=== PATIENT | male | born 2000 | race Caucasian/White ===

== ENCOUNTER 2020-02-05 12:21 | Emergency (ER) | payer MEDICAID, SELFPAY ==
[2020-02-05 12:27] VITALS: BP 155/88; PULSE 95; RESP 16; TEMP 36.4; O2SAT 98
--- NOTE | 2020-02-05 12:45 | DI.RAD_ITS ---
EXAM: XR LUMBAR SPINE COMPLETE CLINICAL HISTORY: Pain,. TECHNIQUE: 2D digital imaging was performed. COMPARISON: No exams were available for comparison FINDINGS: BONES: No fracture or destructive lesion. Vertebral bodies are unremarkable. No facet hypertrophy jamie ntified. DISKS: Intervertebral disc spaces are maintained. ALIGNMENT: Lumbar spinal alignment is within normal limits. SOFT TISSUE: Normal. IMPRESSION: No acute abnormality. DATA REPOSITORY: RADIATION DOSE DELIVERED:
--- NOTE | 2020-02-05 12:48 | ED.GENADUL_ITS ---
Discharge Plan Disposition Patient Disposition: HOME Condition: Stable Discharge Details Clinical Impression: Lumbago Primary Care Provider: None,None ED Provider: Sondra Strong Home Meds and New Rx's Prescriptions: No Action No Known Home Meds RF: 0 Discharge Instructions Instructions: Low Back Strain (ED) Additional Instructions: Follow up with primary care provider in 3-5 days. Return to ED sooner if any worsening or concerns. Increase oral fluids. Please take Tylenol or Ibuprofen with food every 4-6 hours as needed for pain and swelling. Alternate ice and heat. Return to the ED for any worsening pain, problems urinating or if the pain moves. Discharge Data Discharge Date/Time-TO BE ENTERED AT DEPARTURE: 02/05/20 14:28 Medical Decision Making 19-year-old male presents with his mother complaining of lower lumbar tenderness and right lower lumbar paraspinous tenderness. He reports that he was arrested on Wednesday evening for underage drinking and was taken into custody. He does not remember being tased or being thrown down to the ground. He does have a small area of ecchymosis noted to his lower mid spine and some paraspinous tenderness and swelling and muscle spasm noted. He denies any urinary complaints or dysuria or problems urinating. Denies any weakness numbness or saddle anesthesia. He does endorse nausea. No vomiting abdominal pain or diarrhea. Urinalysis shows 30 urine protein, 15 urine ketones, trace intact blood, 3-5 RBCs no leukocytes no nitrites. EXAM: XR LUMBAR SPINE COMPLETE CLINICAL HISTORY: Pain,. TECHNIQUE: 2D digital imaging was performed. COMPARISON: No exams were available for comparison FINDINGS: BONES: No fracture or destructive lesion. Vertebral bodies are unremarkable. No facet hypertrophy identified. DISKS: Intervertebral disc spaces are maintained. ALIGNMENT: Lumbar spinal alignment is within normal limits. SOFT TISSUE: Normal. IMPRESSION: No acute abnormality. Patient was given Flexeril and ibuprofen in department which seemed to improve his symptoms. Discussed alternating ice and heat and home care with patient. Discussed potential option for CT abdomen pelvis due to trace blood in urine to rule out kidney stone which is unlikely due to patient seeming to be tender with palpation and mostly musculoskeletal in origin. They verbalized understanding and declined CT at this time. Instructed to follow-up with PCP, verbalized understanding HPI General Mode of arrival: ambulatory . Date/Time Provider Initiated Documentation: 02/05/20 12:24 . Limitations to Documentation: no limitations . Information obtained by: patient . HPI Narrative: 19-year-old male presents with his mother complaining of lower lumbar tenderness and right lower lumbar paraspinous tenderness. He reports that he was arrested on Wednesday evening for underage drinking and was taken into custody. He does not remember being tased or being thrown down to the ground. He does have a small area of ecchymosis noted to his lower mid spine and some paraspinous tenderness and swelling and m uscle spasm noted. He denies any urinary complaints or dysuria or problems urinating. Denies any weakness numbness or saddle anesthesia. He does endorse nausea. No vomiting abdominal pain or diarrhea. Related Data Home Medications Medication Instructions Recorded Confirmed Unknown [No Known Home Meds] 02/05/20 02/05/20 Allergies Allergy/AdvReac Type Severity Reaction Status Date / Time No Known Allergies Allergy Unverified 02/05/20 12:32 General Stated Complaint: Nk/Back Pain ANDREA: 4 Review of Systems Narrative: Constitutional: Negative for weight loss, alert and oriented, well groomed, normal body habitus, appears comfortable. HEENT: Denies trauma, headaches, blurry vision, nasal discharge, sore throat, trouble swallowing. Chest: Denies chest pain, palpitations, irregular rhythm, hypertension. Respiratory: Denies Shortness of breath, cough, hemoptysis. GI: Denies abdominal pain, nausea, vomiting, diarrhea, constipation. : Denies dysuria, hematuria, flank pain, rectal bleeding. Neuro: Denies dizziness, blurry vision, weakness, syncope, headache or facial numbness. Hematologic: Denies easy bruising, intolerance to heat or cold, hair loss. [facility], [facility] Social History Smoking/Tobacco Use Status: Current every day Tobacco Type: cigarettes Alcohol Intake: current Alcohol Intake frequency: holidays/special occasions only Drug use: Never Substance use type: marijuana Do you feel safe at home: Yes Do you feel safe in your relationship?: Yes Exam Narrative Exam Narrative: Constitutional: Alert and oriented x3. Appears stated age. Normal body habitus. Head: Normocephalic, no trauma. Eyes: Pupils PERRLA, Red reflex noted, EOM's intact. Eyelids symmetrical without lesions, discharge, or swelling. ENT: Bilateral TM's WNL, External ear normal to inspection, no mastoid TTP, swelling, or erythema, Nasal turbinates WNL, no nasal discharge. Normal dentition, Posterior pharynx WNL, no exudate. Chest: RRR, Normal S1, S2, distal pulses intact. Resp: Lungs clear to auscultation bilaterally, no wheezes, rales, or rhonchi. Musculoskeletal: Normal gait, 5/5 strength to all four extremities. Skin: No suspicious rashes or lesions. Capillary refill less than 2 sec. Neurologic: Cranial nerves II-XII intact. Alert and oriented x 3. DTR's intact. Hematologic/Lymphatic: No ecchymosis, no lymphadenopathy. Course Vital Signs Vital signs: Vital Signs Temperature 36.4 C L 02/05/20 12:27 Pulse 95 H 02/05/20 12:27 Respiratory Rate 16 02/05/20 12:27 Blood Pressure 155/88 H 02/05/20 12:27 Pulse Oximetry 98 02/05/20 12:27 Temperature 36.4 C L 02/05/20 12:27 Temperature Source Tympanic 02/05/20 12:27 Pulse 95 H 02/05/20 12:27 Respiratory Rate 16 02/05/20 12:27 Respiratory Effort Non-Labored 02/05/20 12:31 Blood Pressure 155/88 H 02/05/20 12:27 Blood Pressure Position Sitting 02/05/20 12:27 Pulse Oximetry 98 02/05/20 12:27 Oxygen Delivery Method Room Air 02/05/20 12:27 Oxygen Flow Rate 0 02/05/20 12:27 Pain Level 5 02/05/20 12:27
[2020-02-05 13:59] LABS: Bilirubin Negative (Negative); Blood Trace-intact (Negative); Clarity Clear (Clear); Glucose Negative (Negative); Ketones 15 mg/dL (Negative); Leukocyte Esterase Negative (Negative); Nitrite Negative (Negative); Specific Gravity 1.025 (1.005-1.025)
[2020-02-05 14:12] LABS: Bacteria Rare HPF (Negative); Casts Negative LPF (Negative); Crystals Negative HPF (Negative); Epithelial Cells Few HPF (Negative); Mucus Trace (Negative); Other Cells Few Yeast (Negative); WBC 0-2 HPF (0-5)
[2020-02-05 14:13] LABS: C & S Indicated? No
[2020-02-05] MEDS: Ibuprofen 600 MG TAB PO (14:15)
[2020-02-05] MEDS: Cyclobenzaprine 10 MG TAB PO (14:15)
[2020-02-05 14:28] VITALS: BP 143/81; PULSE 59; RESP 15; O2SAT 98
== END 2020-02-05 14:28 | disposition home or self-care (01) ==
PROVIDERS: Emergency Provider Registered Nurse Emergency
DX: M54.5 Low back pain (principal)
CPT/HCPCS: 99283; 72110; 81003; 81015

== ENCOUNTER 2021-11-11 16:06 | Emergency (ER) | payer MEDICAID, SELFPAY ==
[2021-11-11 16:17] VITALS: BP 152/78; PULSE 77; RESP 18; TEMP 36.9; O2SAT 97
--- NOTE | 2021-11-11 16:30 | DI.RAD_ITS ---
Exam(s) XR WRIST RT COMPLETE EXAM: XR WRIST RT COMPLETE CLINICAL HISTORY: punched a door, r/o fx. TECHNIQUE: 2D digital imaging was performed. Three views. COMPARISON: No exams were available for comparison FINDINGS: BONES: No acute fracture is present. No bony destructive lesion is seen. JOINTS: The carpal bones are normally aligned. SOFT TISSUE: Dorsal soft tissue swelling. IMPRESSION: No acute bony abnormality. DATA REPOSITORY: RADIATION DOSE DELIVERED:
--- NOTE | 2021-11-11 16:30 | DI.RAD_ITS ---
Exam(s) XR HAND RT COMPLETE EXAM: XR HAND RT COMPLETE CLINICAL HISTORY: punched a door, r/o fx. TECHNIQUE: 2D digital imaging was performed. Three views. COMPARISON: No exams were available for comparison FINDINGS: BONES: There is an acute fracture of the head of the 5th metacarpal with some ventral angulation and mild ventral displacement. No additional fractures are seen.. No bony destructive lesion is seen. JOINTS: No dislocation present. SOFT TISSUE: Dorsal soft tissue swelling over the metacarpal region. IMPRESSION: Fifth metacarpal fracture. DATA REPOSITORY: RADIATION DOSE DELIVERED:
--- NOTE | 2021-11-11 16:58 | PDOC.ERCMPRO ---
- If Service Date Differs Date of service: 11/11/21 Time of Service: 16:59 Care Management Progress Note SBIRT screen negative for anxiety, depression, substance use except cannabis which pt uses daily foir ADHD symptoms because he feels it works better than other medications. Pt is currently cutting down on nicotine and has switched from smoking to vaping.
--- NOTE | 2021-11-11 17:32 | ED.GENADUL_ITS ---
Discharge Plan Disposition Patient Disposition: HOME Condition: Stable Discharge Details Clinical Impression: Boxer's fracture Primary Care Provider: None,None ED Provider: Juana Casey Home Meds and New Rx's Prescriptions: No Action No Known Home Meds Discharge Instructions Instructions: Boxer Fracture (ED) Additional Instructions: Your x-ray confirms today that you have a boxer's fracture or fracture of the fifth metacarpal bone in your right hand. Rest, ice, and elevate the affected area as much as possible. Alternate tylenol and motrin as needed and directed for pain. You have been placed in a splint to keep in place as much as possible until follow-up with orthopedics. Follow-up with orthopedics in the next 1 to 2 weeks. Return immediately to the emergency department if you develop any worsening or new concerning symptoms. Referrals: Dontae Feliz MD [ [facility] STAFF PHYSICIAN] - Discharge Data Discharge Date/Time-TO BE ENTERED AT DEPARTURE: 11/11/21 18:38 Discharge Physician: Juana Casey Medical Decision Making 21yo M presents with right hand pain after punched a garage door 2 weeks ago. He has not sought medical treatment or evaluation since his injury. He has tenderness with edema and ecchymosis of the dorsal hand overlying the fourth and fifth metacarpals. There is no obvious deformity. He is neurov ascularly intact. Patient referred for imaging which confirms boxer's fracture. Case discussed with Dr. Feliz and as injury is 2 weeks out, appropriate to place a premade boxer splint. Patient placed on orthopedic follow-up list. Usual and customary return precautions given prior to discharge. Medical Records Medical records reviewed: Yes I reviewed the patient's medical records. HPI General Mode of arrival: ambulatory . Date/Time Provider Initiated Documentation: 11/11/21 16:15 . Limitations to Documentation: no limitations . Information obtained by: patient . HPI Narrative: Patient is a 21-year-old [id number] male who presents with right hand pain after punched a garage door 2 weeks ago. Patient states he suspected a fracture in his hand and has been wearing his girlfriend's father's splint but s tates it is too big for him. He has been taking ibuprofen for pain. Patient states he is here today for an x-ray to make sure that his bone is healing. Related Data Home Medications Medication Instructions Recorded Confirmed Unknown [No Known Home Meds] 02/05/20 02/05/20 Allergies Allergy/AdvReac Type Severity Reaction Status Date / Time No Known Allergies Allergy Unverified 02/05/20 12:32 General Stated Complaint: Orthopedic ANDREA: 4 Review of Systems All systems reviewed & are unremarkable except as noted in HPI and below Constitutional Constitutional: Reports as per HPI, Denies chills and Denies fever(s) Eyes Eyes: Denies blurry vision ENT Ears, Nose, Mouth, and Throat: Denies dizziness, Denies sore throat and Denies throat swelling Cardiovascular Cardiovascular: Denies chest pain and Denies dyspnea Respiratory Respiratory: Denies cough and Denies dyspnea Gastrointestinal Gastrointestinal: Denies abdominal pain, Denies diarrhea and Denies vomiting Genitourinary Genitourinary: Denies hematuria and Denies dysuria Musculoskeletal Musculoskeletal: Denies back pain and Denies numbness Comments: R hand injury Integumentary/Breasts Skin/Breast: Denies lesions and Denies rash Neurologic Neurologic: Denies dizziness, Denies localized weakness and Denies numbness Allergic/Immunologic Allergic/Immunologic: Denies throat swelling PFSH All Active Problems (Updated 11/11/21 @ 18:23 by Juana Casey DO) Boxer's fracture (Acute) Social History Smoking/Tobacco Use Status: Current every day Tobacco Type: cigarettes Smoking risk assessment performed?: Yes Alcohol Intake: current Alcohol Intake frequency: holidays/special occasions only Drug use: Never Substance use type: does not use Do you feel safe at home: Yes Do you feel safe in your relationship?: Yes Exam Const General: cooperative, healthy appearing and no acute distress Orientation: alert, awake and oriented x3 HENMT Head: normal to inspection Mouth: oral mucosae normal Eyes General: appearance normal, both eyes and all related structures Neck Neck: normal visual inspection Resp Effort & Inspection: normal respiratory effort and able to speak in complete sentences Cardio Rate: regular rate Skin General skin exam: no rashes or lesions noted Neuro General: patient alert, patient awake and patient oriented x3 Motor: muscle tone normal throughout Extrem Hand/finger images: 1. Tenderness to palpation and mild to moderate edema and ecchymoses noted on the dorsal surface of the hand overlying the right fourth and fifth metacarpals. There are no open wounds noted. Psych Appearance: grossly normal Affect: normal affect Course Vital Signs Vital signs: Vital Signs Temperature 98.4 F 11/11/21 16:17 Pulse 77 11/11/21 16:17 Respiratory Rate 18 11/11/21 16:17 Blood Pressure 152/78 H 11/11/21 16:17 Pulse Oximetry 97 11/11/21 16:17 Temperature 98.4 F 11/11/21 16:17 Temperature Source Skin 11/11/21 16:17 Pulse 77 11/11/21 16:17 Respiratory Rate 18 11/11/21 16:17 Respiratory Effort 11/11/21 16:21 Blood Pressure 152/78 H 11/11/21 16:17 Blood Pressure Position Sitting 11/11/21 16:17 Pulse Oximetry 97 11/11/21 16:17 Oxygen Delivery Method Room Air 11/11/21 16:17 Oxygen Flow Rate 0 11/11/21 16:17 Pain Level 3 11/11/21 17:25 Comment 11/11/21 16:17
--- NOTE | 2021-11-11 18:02 | DI.VRAD_ITS ---
PROCEDURE INFORMATION: Exam: XR Right Hand Exam date and time: 11/11/2021 5:26 PM Age: 21 years old Clinical indication: Other: Punched a door, R/O FX TECHNIQUE: Imaging protocol: Radiologic exam of the Right hand. Views: 3 or more views. COMPARISON: No relevant images were readily available for comparison purposes. FINDINGS: Bones/joints: there is a mildly displaced/angulated acute appearing fracture of the 5th metacarpal head. Soft tissues: soft tissue swelling. IMPRESSION: Acute fracture 5th metacarpal head. Dictated and Authenticated by: Shaka Lawler MD. Ordering:LAILA Arias MD
--- NOTE | 2021-11-11 18:03 | DI.VRAD_ITS ---
PROCEDURE INFORMATION: Exam: XR Right Wrist Exam date and time: 11/11/2021 5:27 PM Age: 21 years old Clinical indication: Other: Punched a door, R/O FX TECHNIQUE: Imaging protocol: Radiologic exam of the Right wrist. Views: 3 or more views. COMPARISON: CR XR HAND RT COMPLETE 11/11/2021 5:26 PM FINDINGS: Bones/joints: 5th metacarpal head fracture better demonstrated on same day radiograph of the hand. Please see the associated report. No other acute fracture or dislocation. Soft tissues: Soft tissue swelling. IMPRESSION: As above. Dictated and Authenticated by: Shaka Lawler MD. Ordering:LAILA Arias MD
[2021-11-11] MEDS: Ibuprofen 600 MG TAB PO (18:38)
== END 2021-11-11 18:38 | disposition home or self-care (01) ==
PROVIDERS: Emergency Provider Physician Assistant
DX: S62.396A Other fracture of fifth metacarpal bone, right hand, initial encounter for closed fracture (principal); W22.09XA Striking against other stationary object, initial encounter
CPT/HCPCS: 29125; 99284; 73110; 73130; 99283

== ENCOUNTER 2022-10-03 11:25 | Emergency (ER) | payer MEDICAID, SELFPAY ==
[2022-10-03] VITALS (24 sets, daily range): BP systolic 89–133; BP diastolic 45–83; PULSE 53–77; RESP 12–24; TEMP 36.6–36.8; O2SAT 97–99
--- NOTE | 2022-10-03 11:26 | ED.GENADUL_ITS ---
Discharge Plan Disposition Patient Disposition: Home Discharge Details Clinical Impression: BRBPR (bright red blood per rectum), Chest pain, unspecified Primary Care Provider: Unknown,Unknown ED Provider: Jaquan Fraser Home Meds and New Rx's Prescriptions: No Action No Known Home Meds Discharge Instructions Additional Instructions: You were seen in the emergency department for your right red blood per rectum. Your blood counts were normal. Your CAT scan showed no acute process in your stomach. No signs of inflammatory bowel disease. No signs of any masses. As galindo dolan discussed, please continue the process of obtaining a primary care provider. Please follow-up with your primary care provider as you may or may not benefit from a colonoscopy. If you develop fevers any abdominal pain or develop any bleeding that does not stop from your rectum please return to the emergency department. Medical Decision Making This is a quite well-appearing normothermic and not tachycardic 21-year-old male with bright red blood per rectum and narrow caliber stools concerning for the possibility of early inflammatory bowel disease. Patient has not had any fevers or unintentional weight loss. We will obtain a CT scan to assess for signs of colitis or any skip lesions. No vomiting to suggest SBO. He has no specific ri ght lower quadrant tenderness to suggest appendicitis. No rash on chest or abdomen to suggest zoster. No history of trauma to suggest intra-abdominal bleeding. He denies black and tarry stools and is nonalcoholic so my suspicion for upper GI bleed is low. He has reassuring vital signs and my suspicion is low for acute blood loss anemia. Based on Lana Blatchford scoring system if his hemoglobin is reassuring he will be appropriate for discharge with outpatient management. He is in the process of obtaining a primary care provider so we will obtain a CT scan with IV contrast and will add oral contrast secondary to his low BMI. Concerning his chest pain he has equal breath sounds and no recent trauma so I am not concerned for pneumothorax. He is not hypotensive nor dialysis patient make my suspicion low for tamponade. He has not been vomiting to suggest increased risk for esophageal rupture. No cough no fevers to suggest pneumonia. No positional component to suggest pericarditis. I considered PE however the patient is PERC negative so I did not obtain a D- dimer. Will obtain twelve-lead ECG and single troponin based on duration of time since the patient's symptoms began and is overall low risk for ACS. 12:50 PM CBC with no anemia thrombocytopenia nor leukocytosis. 1:22 PM Reassuring negative troponin. Basic metabolic panel within normal limits with the exception of very mild hyperglycemia but normal bicarbonate and no anion gap. Not consistent with DKA. His GBS score was 0 making him low risk in the setting of GI bleed. Appropriate for discharge with outpatient follow-up based on results of CT. 2:[address] scan with no acute process. Reassuring normal chest x-ray. Will discharge patient with return indications. Will ensure patient can pass a p.o. trial. 3:15 PM Patient tolerated p.o. in the ED. He was discharged with empiric trial of expectant outpatient management. I did advise ED return if he developed rectal bleeding that did not stop, if he developed fever, or had any significant abdominal pain. Otherwise he will continue the process of setting up a primary care provider and follow-up with his primary care provider. HEART SCORE Chest pain Diagnostic Protocol: - [History/Physical/Gestalt: Slightly Suspicious (0)] - [EKG: Nonspecific repolarization (+1)] - [AGE: less than 45 (0)] - [RISK FACTORS: No known risk factors (0)] - [TROPONIN: <= normal limit (0)] - TOTAL SCORE: 1 - Risk Factors: DM, current or recent smoker, HTN, HLD, family hx of CAD, obesity - INTERPRETATION: With a total score of 3 or less, risk of major cardiac event within six weeks 1.7%, likely lower with two negative troponins. [I explained to the patient that the risk of subsequent major cardiac event within 1 month is not 0, however risk predicted to be less than 2%. Patient verbalized understanding, accepts this risk and shared and the decision for discharge with PCP follow-up for further evaluation and management. They understand to return to the ED immediately with any worsening symptoms, new symptoms or other concerns.] Chronic conditions affecting the care of the patient: N/A History obtained from an outside historian: Patient's mother External record review: No record in [facility] EMR Diagnostic interpretations performed by me: [Per my independent interpretation chest x-ray shows:] [] Per my independent interpretation EKG shows: Narrow complex sinus bradycardia at a rate of 57. Normal axis. Intervals within normal limits. No ST segment abnormalities. Biphasic T wave in aVL. No prior for comparison. No acute injury pattern. Medications: [] Social determinants of health affecting disposition: [] Management discussed with: [] Treatment/interventions considered: [] Response to therapies provided: [] HPI General Date/Time Provider Initiated Documentation: 10/03/22 11:25 . HPI Narrative: This is a previously healthy 21-year-old male up-to-date with immunizations in the emergency department with his mother in the setting of 2 complaints. Patient reports that yesterday he had bright red blood per rectum. He has been nauseous for the past several weeks and reportedly has had increasingly narrow caliber stools that he describes as shaped like a ribbon. He has not vomited. He occasionally has some sharp abdominal pains. He remotely had a hernia repaired during infancy. He takes no medications. He endorses a gurgling sound in his stomach. He denies any black tarry stools. He has not had any fevers. He has no personal history and there is no reported family history of inflammatory bowel disease. Patient and his mother specifically denies history of ulcerative colitis and Crohn's disease. Of note however mom does have a history of hypothyroidism and celiac disease. Patient vapes tobacco occasionally drinks ethanol and occasionally smokes marijuana. He also complains of intermittent left sided chest pain that has been going on for the past several months. It occurs at random and lasts approximately 1 minute. It does not radiate. It is not associated with diaphoresis. Patient has not taken any falls on his chest. No recent URI symptoms. No history of PE nor DVT. No cough. No syncope. Related Data Home Medications Medication Instructions Recorded Confirmed Unknown [No Known Home Meds] 02/05/20 10/03/22 Allergies Allergy/AdvReac Type Severity Reaction Status Date / Time No Known Allergies Allergy Unverified 02/05/20 12:32 General ANDREA: 4 PFSH All Active Problems (Updated 10/03/22 @ 11:58 by Jaquan Fraser MD) BRBPR (bright red blood per rectum) (Acute) Chest pain, unspecified (Acute) Social History Smoking/Tobacco Use Status: Current every day Tobacco Type: cigarettes Smoking risk assessment performed?: Yes Alcohol Intake: current Alcohol Intake frequency: holidays/special occasions only Drug use: Never Substance use type: does not use Do you feel safe at home: Yes Do you feel safe in your relationship?: Yes Exam Narrative Exam Narrative: General: Well-appearing in no acute distress speaking in complete sentences. Head: Normocephalic, atraumatic. Eye: Extraocular eye movements intact. No conjunctival injection. No scleral icterus. Ear, nose, mouth, throat: Grossly normal inspection. Normal voice, handling secretions normally. Neck: Trachea midline. Cardiovascular: Well-perfused distal extremities. Regular rate and rhythm. No murmurs. Respiratory: Nonlabored respiration. Clear lungs bilaterally. Gastrointestinal: Nondistended abdomen. Soft nontender abdomen. No rebound. No guarding. Rectal exam: On external inspection at approximately the 2 o'clock position patient has some redundant folds of skin. No obvious external hemorrhoids. No anal fissures. On internal exam no obvious internal hemorrhoids. Musculoskeletal: No edema. Moving all 4 extremities spontaneously. Skin: Normal for age and race, grossly normal temperature and turgor. No acute rash. Neurologic: Alert and appropriate, no apparent acute deficits. Psychiatric: Mood and manner are appropriate. Grooming and personal hygiene are appropriate.
--- NOTE | 2022-10-03 11:45 | DI.RAD_ITS ---
Exam(s) XR CHEST 2V PA LATERAL EXAM: XR CHEST 2V PA LATERAL CLINICAL HISTORY: Chest pain TECHNIQUE: 2D digital imaging was performed of the chest. Two images were obtained. PA and lateral views were obtained. COMPARISON: No exams were available for comparison FINDINGS: MEDIASTINUM: Normal. HEART: Normal. PULMONARY VASCULATURE: Normal. LUNGS: Clear. PLEURAL SPACE: No pleural effusion or pneumothorax. BONE:Within normal limits for the patient's age. OTHER FINDINGS:Normal. IMPRESSION: No acute pulmonary findings. DATA REPOSITORY: RADIATION DOSE DELIVERED:
--- NOTE | 2022-10-03 11:45 | RT.EKG_ITS ---
APPROVED REPORT Exam: Resting ECG Reason for Exam: Chest pain Patient Location: E HR:57 bpm ECG Measurements Heart Rate 57 AXIS SD 148 P 48 QRSd 90 QRS 87 QT 410 T 60 QTc 399 Conclusion Sinus bradycardia...rate< 60 Narrow complex sinus bradycardia at a rate of 57. Normal axis. Intervals within normal limits. No ST segment abnormalities. Biphasic T wave in aVL. No prior for comparison. No acute injury pattern .
--- NOTE | 2022-10-03 11:45 | DI.CT_ITS ---
Exam(s) CT ABDOMEN PELVIS W EXAM: CT ABDOMEN PELVIS W CLINICAL HISTORY: Narrow caliber stools abdominal pain generalized TECHNIQUE: Imaging Protocol: Axial computed tomography images with coronal and sagittal reformatted images were created and reviewed CONTRAST MATERIAL: Intravenous: Omnipaque 350 Contrast volume:90 mL Oral: No COMPARISON: No exams were available for comparison FINDINGS: ABDOMEN: Lung Bases: Normal where visualized. Liver: Normal density. No measurable mass. Portal, Superior Mesenteric, and Splenic Veins: Unremarkable. Gallbladder and Biliary Tract: No radiodense calculus or dilation. Pancreas: Normal density, no abnormal calcifications or inflammatory process. Spleen: Normal. Adrenals: No masses seen. Kidneys: Normal size, contour and axis. No radiodense stones or obstructive uropathy. No masses seen. Abdominal Aorta: Abdominal portion non-dilated. Bowel: No obstruction or bowel wall thickening. Appendix is unremarkable. Peritoneal Cavity: No ascites, collection or mesenteric inflammatory response. No free air. Lymph Nodes: Within normal limits. Bones: Within normal limits for the patient's age. Soft Tissues: Unremarkable. PELVIS: Bladder: Symmetric distention, no gross wall thickening. Reproductive Organs: Unremarkable as visualized. Lymph Nodes: Within normal limits. Bones: Within normal limits for the patient's age. IMPRESSION: No acute abdominal or pelvic process. RADIATION DOSE DELIVERED: 518.17mGy.cm Total DLP DATA REPOSITORY: All CT scans at this facility are submitted to the National Radiology Data Registry (NRDR) Dose Index Registry (DIR) with the [employer] ([employer]). RADIATION OPTIMIZATION: All CT scans at this facility use at least one of these dose optimization te chniques: automated exposure control; mA and/or kV adjustment per patient size (includes targeted exa ms where dose is matched to clinical indication); or iterative reconstruction.
[2022-10-03 12:27] LABS: Abs Immature Grans 0.01 10^3/uL (0.0-0.06); Absolute Basophil Count 0.03 10^3/uL (0.0-0.2); Absolute Eosinophil Count 0.08 10^3/uL (0.0-0.7); Absolute Lymphocyte Count 2.54 10^3/uL (1.2-3.4); Absolute Neutrophil Count 2.44 10^3/uL (1.2-6.7); Basophils % 0.5; Eosinophils % 1.4; HCT 45.6 % (40.0-50.0); HGB 15.5 g/dL (13.5-17.5); Immature Grans % 0.2; Lymphocytes % 44.6; MCH 28.8 pg (27.0-33.0); MCV 85 fL (80-95); MPV 9.9 fL (8.0-11.0); Monocytes % 10.5; Neutrophils % 42.8; Platelet Count 278 10^3/uL (130-400); RBC 5.38 10^6/uL (4.36-5.78); RDW 12.3 % (11.8-14.1)
[2022-10-03 12:52] LABS: Anion Gap 10.2 mmol/L (3-11); BUN 15 mg/dL (7-18); CO2 26.8 mmol/L (21.0-32.0); CREATININE 1.1 mg/dL (0.70-1.30); Calcium 9.8 mg/dL (8.5-10.1); Chloride 103 mmol/L (98-107); Estimated GFR 97.34 (mL/min/1.73m2); Glucose 108 mg/dL (74-106); Potassium 3.6 mmol/L (3.5-5.1); Sodium 140 mmol/L (136-145)
[2022-10-03 13:09] LABS: Troponin I < 50 ng/L (<or=60)
--- NOTE | 2022-10-03 13:57 | NUR.NOTE ---
Nursing Note: Pt awake, A/O X4, denies pain, denies moving bowels. Pt's results reviewed with pt and pt's mom. Pt tolerating long prep for CT Scan, awaiting Xray and scan. Pt in agreement with plan, awaiting disposition. Call light within reach, pt denies needs at this time. Pt's mom off unit with plan to return.
[2022-10-03] MEDS: Omnipaque 350 MG/ML 50 ML BTL PO (14:14)
[2022-10-03] MEDS: Breeza Beverage 473 ML BTL 950 ML PO (14:15)
[2022-10-03] MEDS: Normal Saline - Diluent 50 ML VIAL IJ (14:16)
[2022-10-03] MEDS: Omnipaque 350 MG/ML 100 ML BTL 90 ML IJ (14:16)
--- NOTE | 2022-10-03 14:36 | DI.VRAD_ITS ---
PROCEDURE INFORMATION: Exam: CT Abdomen And Pelvis With Contrast Exam date and time: 10/03/2022 2:12 PM Age: 21 years old Clinical indication: Other: Narrow caliber stools abdominal pain generalized TECHNIQUE: Imaging protocol: Computed tomography of the abdomen and pelvis with contrast. Contrast material: OMNIPAQUE 350; Contrast volume: 90 ml; Contrast route: INTRAVENOUS (IV); COMPARISON: CR XR LUMBAR SPINE COMPLETE 02/05/2020 12:58 PM FINDINGS: Liver: Normal. No mass. Gallbladder and bile ducts: Normal. No calcified stones. No ductal dilation. Pancreas: Normal. No ductal dilation. Spleen: Normal. No splenomegaly. Adrenal glands: Normal. No mass. Kidneys and ureters: There is no evidence of renal or ureteral calcifications. Stomach and bowel: Unremarkable. No obstruction. No mucosal thickening. Appendix: Normal appendix Intraperitoneal space: Unremarkable. No free air. No significant fluid collection. Vasculature: Unremarkable. No abdominal aortic aneurysm. Lymph nodes: Unremarkable. No enlarged lymph nodes. Urinary bladder: Unremarkable as visualized. Reproductive: Unremarkable as visualized. Bones/joints: Unremarkable. No acute fracture. Soft tissues: Unremarkable. IMPRESSION: No acute process Dictated and Authenticated by: Werner Gregorio MD. Ordering:EV Partida MD
--- NOTE | 2022-10-03 14:37 | DI.VRAD_ITS ---
PROCEDURE INFORMATION: Exam: XR Chest Exam date and time: 10/03/2022 2:17 PM Age: 21 years old Clinical indication: Other: Chest pain TECHNIQUE: Imaging protocol: Radiologic exam of the chest. Views: 2 views. COMPARISON: CT ABDOMEN PELVIS W 10/03/2022 2:12 PM FINDINGS: Lungs: Unremarkable. No consolidation. Pleural spaces: Unremarkable. No pleural effusion. No pneumothorax. Heart/Mediastinum: Unremarkable. No cardiomegaly. Bones/joints: Unremarkable. IMPRESSION: No acute findings. Dictated and Authenticated by: Werner Gregorio MD. Ordering:EV Partida MD
--- NOTE | 2022-10-03 14:49 | NUR.NOTE ---
Nursing Note: Pt requested to use bathroom, pt reports voided without difficulty, ambulating independently, steady gait, pt denied lightheadedness/dizziness, returned to bed without incident. Dr Fraser at pt's bedside, imaging results reviewed, disposition plan reviewed; pt's mom returned to bedside
== END 2022-10-03 15:55 | disposition home or self-care (01) ==
PROVIDERS: Emergency Provider Emergency Medicine
DX: K62.5 Hemorrhage of anus and rectum (principal); R07.9 Chest pain, unspecified
CPT/HCPCS: 36415; 80048; 93005; 99285; 71046; 74177; 84484; 85025; 93010; 99284; J3490; Q9967